=== PATIENT | male | born 1980 | race Caucasian/White ===

== ENCOUNTER 2016-11-17 15:58 | Observation (INO) ==
--- NOTE | 2016-11-17 16:09 | Emergency Department Note ---
Disposition Clinical Impression: Pneumonia Qualifiers: Pneumonia type: due to unspecified organism Laterality: bilateral Lung location : lower lobe of lung Qualified Code(s): J18.9 - Pneumonia, unspecified organism Disposition: Admitted As Inpatient Condition: Fair Referrals: Aleks White DO [Primary Care Provider] - Forms: ED Satisfaction Letter SOB HPI - General Chief Complaint: ED Back Pain/Injury Stated Complaint: Recheck Pneumonia Time Seen by Provider: 11/17/16 16:09 Source: patient, family Mode of arrival: private vehicle Limitations: no limitations Nursing Notes Reviewed: Yes Vital Signs Reviewed: Yes - History of Present Illness The patient relates that he has had some shortness of breath at home. He states he has pain is more severe into his back and when he goes to bend over and with a deep breath or cough. His cough is productive of just a whitish phlegm whereas it was green yesterday. He states he does have a home pulse oximeter and his saturations were dropping into the 85-88% range. He is not on home oxygen. He denies other nausea, vomiting, abdominal pain or diarrhea. Denies extremity complaints. He was extensively evaluated yesterday including a CT PE study which showed bibasilar patchy infiltrates. He has been taking some [place] for pain and Augmentin. With progressive pain and dyspnea he has returned today for reevaluation. Pt Subjective Complaint: shortness of breath, cough, pain with inspiration Onset (ago): day(s) Context: recent illness Severity: moderate Consistency/Duration: gradually worsening Improves with: rest Worsens with: exertion, coughing, inspiration Known history of: other (Recent) Associated symptoms: Reports: chest pain, pain with inspiration, fever, cough, sputum production, diaphoresis. Denies: wheezing, orthopnea, lower extremity pain, polyuria, polydipsia, parasthesias, palpitations, hemoptysis, nausea/ vomiting, syncope, abdominal pain, rash Cough present: Yes Cough Description: Voluntary, Productive, Hacking Cough Frequency: Intermittent Sputum production: Yes Sputum Amount: Small Sputum Color: White - Related Data Home Medications Medication Instructions Recorded Confirmed Amlodipine [Norvasc] 5 mg PO DAILY 11/16/16 11/16/16 Colchicine [Colcrys] mg PO DAILY 11/16/16 Febuxostat [Uloric] 40 mg PO DAILY 11/16/16 11/16/16 Fenofibrate [Tricor] 54 mg PO DAILY 11/16/16 11/16/16 Previous Rx's Medication Instructions Recorded Albuterol Sulfate [Albuterol 2 puff IH Q4HR PRN #1 hfa.aer.ad 11/16/16 Inhaler] Amoxicillin/Clavulanate [Augmentin] 875 mg PO BIDWM #20 tablet 11/16/16 GuaiFENesin ER [Mucinex] 1,200 mg PO BID #28 tbbp.12hr 11/16/16 HYDROcodone/Acet 5/325 mg [[place] 1 tab PO Q6H PRN #14 tab 11/16/16 5-325 mg] Allergies Allergy/AdvReac Type Severity Reaction Status Date / Time No Known Allergies Allergy Verified 11/16/16 10:18 All systems ED: reviewed and negative except as stated. Past Medical History - Past Medical History Attestation: Yes The following information was validated with the patient. Source: patient, old records reviewed, nursing notes reviewed Medical history: Reports: arthritis (Gout), hyperlipidemia Surgical history: Reports: orthopedic, other (Foot surgery) Psychiatric history: Reports: no psych history - Social History Smoking Status: Never smoker Smokeless Tobacco Status: No Alcohol use: Reports: none Drug use: Reports: none Physical Exam - General Limitations: no limitations General appearance: alert, in distress - Head Head exam: atraumatic, normocephalic, normal inspection - Eye Eye exam: Present: normal appearance, PERRL, EOMI - ENT ENT exam: normal exam, normal oropharynx, mucous membranes moist - Neck Neck exam: Present: normal inspection, full ROM, trachea midline - Chest Chest inspection: Present: normal inspection, symmetric chest wall rise - Respiratory Respiratory exam: Present: normal lung sounds bilaterally, respiratory distress , prolonged expiratory phase. Absent: wheezes, accessory muscle use - Cardiovascular Cardiovascular exam: Present: regular rate, normal rhythm, tachycardia, normal heart sounds - Abdominal Exam Abdominal exam: Present: soft, Non-Tender, normal bowel sounds. Absent: tenderness, distention, guarding, rebound, rigidity - Extremities Exam Extremities exam: Present: normal inspection, full ROM, normal capillary refill. Absent: tenderness, pedal edema, calf tenderness - Expanded Lower Extremity Exam Neurovascular/Tendon exam: Present: normal capillary refill. Absent: motor deficit, sensory deficit, tendon deficit Gait: observed and normal - Back Exam Back exam: Present: normal inspection, full ROM. Absent: tenderness, CVA tenderness (R), CVA tenderness (L) - Neurological Exam Neurological exam: Present: alert, oriented X3, normal gait - Psychiatric Psychiatric exam: Present: normal affect, normal mood - Skin Skin exam: Present: intact, normal color, diaphoresis. Absent: rash, cyanosis, erythema, pallor Course Course Narrative: 1619: Patient has failed outpatient treatment at this time. I am contacting to Dr. Sanders discuss this possible admission for IV fluids, IV antibiotic and continued oxygen and respiratory treatments. Dr. Fernandez agrees with the admission of this patient. He feels that we can hold on any repeat imaging until he can reevaluate the patient with consideration of repeat imaging tomorrow morning if there is no improvement showing. Vital Signs Temperature 98 F 11/17/16 16:02 Pulse Rate 121 11/17/16 16:02 Respiratory Rate 20 11/17/16 16:02 Blood Pressure 156/91 11/17/16 16:02 O2 Sat by Pulse Oximetry 11/17/16 16:02 Temperature 98 F 11/17/16 16:07 Pulse Rate 121 11/17/16 16:07 Respiratory Rate 20 11/17/16 16:07 Blood Pressure 156/91 11/17/16 16:07 O2 Sat by Pulse Oximetry 91 11/17/16 16:07 Oxygen Delivery Oxygen Delivery Room Air Shortness of Breath/Dyspnea - Differential Diagnosis Likely: pneumonia, asthma with exacerbation - Medical Records Medical records reviewed: Yes I reviewed the patient's medical records. CT/CT angio chest IMPRESSION: 1. No acute pulmonary emboli. 2. Mild patchy bilateral lower lobe bronchopneumonia, this could relate to a possible aspiration pneumonitis. D/ / 11/16/2016 10:52:48 Ron Aponte MD / rene - Lab Data Lab results reviewed: Yes I reviewed the patient's lab results. Result diagrams: 11/17/16 16:21 Lab Results 11/17/16 Range/Units 16:21 WBC 25.4 H (4.3-11.1) K/mcL RBC 4.81 (4.19-5.50) M/mcL Hgb 13.6 (12.9-16.9) g/dL Hct 39.1 (37.5-50.1) % MCV 81.3 L (83.0-100.0) fL MCH 28.3 (28.0-33.3) pg MCHC 34.8 (31.6-35.5) g/dL RDW 13.2 (11.5-14.5) % Plt Count 295 (140-400) K/mcL MPV 9.5 (9.4-12.4) fL Immature Gran % [facility] Seg Neutrophils % 46.0 % Band Neutrophils % 40.0 H (0-4) % Lymphocytes % 4.0 % Monocytes % 2.0 % Eosinophils % [facility] Basophils % [facility] Metamyelocytes % 4.0 H (0) % Myelocytes % 2.0 H (0) % Promyelocytes % 2.0 H (0) % Neutrophils # 21.8 H (1.6-8.9) K/mcL Lymphocytes # 1.0 (0.6-4.6) K/mcL Monocytes # 0.5 (0.0-1.3) K/mcL Eosinophils # [facility] Basophils # [facility] Toxic Granulation Present A (Not Present) Toxic Vacuolation Present A (Not Present) Platelet Estimate Normal (Normal)
[2016-11-17] MEDS ORDERED: 0.9 % Sodium Chloride 1,000 ML IVC ONE (16:12)
[2016-11-17] MEDS ORDERED: Ketorolac 30 MG/ML VIAL IVP ONE (16:13)
[2016-11-17] MEDS ORDERED: 0.9 % Sodium Chloride 1,000 ML IVC SCH (16:15)
[2016-11-17 16:30] LABS: Hematocrit 39.1 % (37.5-50.1); Hemoglobin 13.6 g/dL (12.9-16.9); Mean Corpuscular HGB Conc 34.8 g/dL (31.6-35.5); Mean Corpuscular Hemoglobin 28.3 pg (28.0-33.3); Mean Corpuscular Volume 81.3 fL (83.0-100.0); Mean Platelet Volume 9.5 fL (9.4-12.4); Platelet Count 295 K/mcL (140-400); Red Blood Count 4.81 M/mcL (4.19-5.50); Red Cell Distribution Width 13.2 % (11.5-14.5)
[2016-11-17] MEDS ORDERED: Levofloxacin 750 MG/150 ML 750 MG/150 ML BAG IVPB ONE (16:42)
[2016-11-17 17:00] LABS: Neutrophils # 21.8 K/mcL (1.6-8.9)
[2016-11-17 17:02] LABS: Monocytes # 0.5 K/mcL (0.0-1.3)
[2016-11-17 17:03] LABS: Platelet Estimate Normal (Normal); Toxic Granulation Present (Not Present); Toxic Vacuolation Present (Not Present)
[2016-11-17] MEDS ORDERED: Ketorolac 30 MG/ML VIAL IVP PRN (18:56)
[2016-11-17] MEDS ORDERED: *HR* HYDROcodone/Acet 5/325 mg TABLET PO PRN (18:56)
[2016-11-17] MEDS ORDERED: Acetaminophen 325 MG TABLET PO PRN (18:56)
[2016-11-17] MEDS ORDERED: Albuterol 2.5 MG/3 ML NEBULIZER IH PRN (18:56)
[2016-11-17] MEDS ORDERED: MOM Conc 10 ML UD.LIQ PO PRN (18:56)
[2016-11-17] MEDS ORDERED: Ondansetron 4 MG/2 ML VIAL IVP PRN (18:56)
[2016-11-17] MEDS ORDERED: Naloxone 0.4 MG/ML INJ IVP PRN (18:56)
[2016-11-17] MEDS: 0.9 % Sodium Chloride 1,000 ML IVC SCH (20:21)
[2016-11-17] MEDS: PredniSONE 20 MG TABLET PO SCH (20:26)
[2016-11-17] MEDS: Ipratropium/Albuterol Neb 3 ML IH SCH (23:31)
[2016-11-18] MEDS: Ipratropium/Albuterol Neb 3 ML IH SCH ×2 (03:57→10:13)
[2016-11-18] MEDS: 0.9 % Sodium Chloride 1,000 ML IVC SCH ×2 (04:24→12:49)
[2016-11-18] MEDS: PredniSONE 20 MG TABLET PO SCH (08:09)
[2016-11-18] MEDS ORDERED: Levofloxacin 750 MG/150 ML 750 MG/150 ML BAG IVPB SCH ×3 (09:00→17:00)
--- NOTE | 2016-11-18 11:39 | Internal Med History&Physical ---
Date of Encounter: 11/18/16 Time of Encounter: 11:05 Assessment and Plan (1) Pneumonia Current visit: Yes Status: Acute He has been started on IV Levaquin through emergency room. Lactobacillus will also be given. Follow-up labs will be done in a.m. with room air oximetry on 6 minute walk. Qualifiers: Pneumonia type: due to unspecified organism Laterality: bilateral Lung location: lower lobe of lung Qualified Code(s): J18.9 - Pneumonia, unspecified organism (2) Hypertension Current visit: Yes Status: Chronic Continue Norvasc. Will add low-dose metoprolol for tachycardia Qualifiers: Hypertension type: essential hypertension Qualified Code(s): I10 - Essential (primary) hypertension (3) Hematuria Current visit: Yes Status: Acute UA of 11/16/2016 reviewed showing large amount of blood but 0-3 WBCs on microscopic exam. Internal Medicine - H&P: HPI Chief complaint: Cough and dyspnea Admitted From: Home Plans for Post Hospital Care: Home History of present illness: Mr. Canseco is a 36 year old male who came to emergency room from a local urgent care November 16 after developing cough with dyspnea and right lower quadrant pain. Chest CT in emergency room showed bibasilar pneumonia. No evidence for possible kidney stone was found. He was given amoxicillin and other medications for the pneumonia and discharged home. He had persistent cough and some recurrent right lower abdominal pain so returned to emergency room November 17. WBC was found elevated at 25.4K with 40% bands present on differential. He was admitted to [facility] floor for ongoing care needs. He states he feels improved at the present time but not back to baseline. He is a lifelong nonsmoker and has no known chronic lung disease. He has not had previous pneumonia. He denies any unusual travel or contact exposures. Past Med Surg Social Fam HX - Past Medical History Medical history: arthritis, hyperlipidemia Psychiatric history: no psych history - Past Surgical History Surgical History: orthopedic, other - Social History Smoking Status: Never smoker Smokeless Tobacco Status: No Alcohol use: none Drug use: none Internal Medicine - H&P: Meds Albuterol Sulfate [Albuterol Inhaler] 2 puff IH Q4HR PRN #1 hfa.aer.ad 11/16/16 [Rx] Amlodipine [Norvasc] 10 mg PO DAILY 11/16/16 [History] Amoxicillin/Clavulanate [Augmentin] 875 mg PO BIDWM #20 tablet 11/16/16 [Rx] Colchicine [Colcrys] 0.6 mg PO DAILY 11/16/16 [History] Febuxostat [Uloric] 80 mg PO DAILY 11/16/16 [History] Fenofibrate [Tricor] 160 mg PO DAILY 11/16/16 [History] GuaiFENesin ER [Mucinex] 1,200 mg PO BID #28 tbbp.12hr 11/16/16 [Rx] HYDROcodone/Acet 5/325 mg [[place] 5-325 mg] 1 tab PO Q6H PRN #14 tab 11/16/16 [Rx ] Gemfibrozil [Lopid] 600 mg PO BIDWM 11/17/16 [History] Losartan Potassium [Cozaar] 75 mg PO DAILY 11/17/16 [History] Allergies No Known Allergies Allergy (Verified 11/16/16 10:18) All Systems PM: A 10-system review of systems was performed and is negative for pertinent findings except as documented above in the HPI. Review of systems: Gen.: He states his weight is increased approximately 40 pounds in the past year , unintentionally. He admits he has not been exercising as much as before. Cardiovascular: He has history of hypertension but denies IN heart failure angina DVT or pulmonary embolus Respiratory: As per history of present illness GI: He denies disorders of his liver gallbladder or exocrine pancreas : He denies hematuria dysuria or kidney stones Neurologic: Denies large distribution strokes or seizures. He denies syncope or migraine headaches Endocrine: He has hyperlipidemia but denies diabetes or thyroid disease Hematology/oncology: He denies blood disorders cancers or anemia Psychiatric: He denies anxiety depression or other mental health issues Musculoskeletal: He has diagnosis of gout. He had clubfoot with surgical correction. He denies other bone joint or muscle disorders. He has had tendon surgery on his left hand. - Constitutional Vitals: Temp Pulse Resp BP Pulse Ox 97.7 F 110 14 145/75 95 11/18/16 10:22 11/18/16 10:22 11/18/16 10:22 11/18/16 10:22 11/18/16 10:22 Exam: Gen.: He is a well-developed well-nourished male who appears minimally dyspneic lying in bed. He is wearing oxygen by nasal cannula. HEENT: Head is atraumatic and normocephalic. Eyes: EOMI. There is no scleral icterus. Mouth: Mucosa is moist. Neck: Supple and nontender. There is no thyromegaly or adenopathy noted. Heart: Regular without murmurs gallops or ectopics. Rate is 120/m Lungs: No wheezes egophony or crackles are heard. Abdomen: Soft and nontender. No masses or guarding are noted. Extremities: There is no cyanosis edema or clubbing noted. Dorsalis pedis and posterior tibial pulses are 1-2 over 2 bilaterally. Neurologic: Mental status: He is talkative and a good historian. Cranial nerves : Smile is symmetric. Forehead wrinkles bilaterally. Tongue protrudes midline. EOMI. Motor: There is no pronator drift. Cerebellar: Finger to nose is intact bilaterally. Skin: Warm and dry Internal Med - H&P Results - Labs CBC & Chem 7: 11/17/16 16:21 - VTE Documentation of Mechanical Device: Graduated compression elastic hosiery
[2016-11-18] MEDS: 0.45 % Sodium Chloride w/KCl 20 MEQ/1,000 ML MLS IVC SCH ×2 (12:41→21:07)
[2016-11-18] MEDS: Metoprolol XL (24 HR) Succ 25 MG TAB.ER.24H PO SCH (12:45)
[2016-11-18] MEDS: Colchicine 0.6 MG TABLET PO SCH (16:33)
[2016-11-19 04:49] LABS: Hematocrit 32.8 % (37.5-50.1); Hemoglobin 11.1 g/dL (12.9-16.9); Mean Corpuscular HGB Conc 33.8 g/dL (31.6-35.5); Mean Corpuscular Volume 82.8 fL (83.0-100.0); Mean Platelet Volume 10.2 fL (9.4-12.4); Platelet Count 366 K/mcL (140-400); Red Blood Count 3.96 M/mcL (4.19-5.50); Red Cell Distribution Width 13.7 % (11.5-14.5)
[2016-11-19 05:08] LABS: BUN/Creatinine Ratio 20 (6-26); Blood Urea Nitrogen 17 mg/dL (8-26); Calcium 9.5 mg/dL (8.6-10.8); Carbon Dioxide 23 mEq/L (19-29); Chloride 108 mEq/L (98-109); Glucose 114 mg/dL (70-99); Osmolality,Calculated 294 (280-300); Potassium 4.6 mEq/L (3.5-4.5); Sodium 141 mEq/L (136-145); eGFR For African Americans > 60 (> 60); eGFR For Non-African Americans > 60 (> 60)
[2016-11-19 07:34] LABS: Lymphocytes # 1.9 K/mcL (0.6-4.6); Monocytes # 0.6 K/mcL (0.0-1.3); Neutrophils # 29.6 K/mcL (1.6-8.9)
[2016-11-19 07:35] LABS: Toxic Granulation Present (Not Present)
[2016-11-19 07:53] VITALS: BP 156/92
[2016-11-19] MEDS: Metoprolol XL (24 HR) Succ 25 MG TAB.ER.24H PO SCH (08:34)
[2016-11-19] MEDS: 0.45 % Sodium Chloride w/KCl 20 MEQ/1,000 ML MLS IVC SCH (08:35)
[2016-11-19] MEDS: Colchicine 0.6 MG TABLET PO SCH (08:45)
[2016-11-19] MEDS ORDERED: FEBUXOSTAT 80 MG PO SCH (09:00)
--- NOTE | 2016-11-19 09:41 | Discharge Summary ---
Date of Encounter: 11/19/16 Time of Encounter: 09:25 - Discharge Diagnosis (1) Pneumonia Priority: Primary Status: Acute Qualifiers: Pneumonia type: due to unspecified organism Laterality: bilateral Lung location: lower lobe of lung Qualified Code(s): J18.9 - Pneumonia, unspecified organism (2) Hypertension Priority: Secondary Status: Chronic Qualifiers: Hypertension type: essential hypertension Qualified Code(s): I10 - Essential (primary) hypertension (3) Hematuria Priority: Secondary Status: Acute - Discharge Medications Prescriptions: Lactobacillus [Culturelle] 1 each PO BID #14 cap.sprink Levofloxacin [Levaquin] 500 mg PO DAILY #7 tablet Metoprolol XL (24 HR) Succ [Toprol Xl] 25 mg PO DAILY #30 tab.er.24h Home Medications: Albuterol Sulfate [Albuterol Inhaler] 2 puff IH Q4HR PRN #1 hfa.aer.ad 11/16/16 [Rx] Amlodipine [Norvasc] 10 mg PO DAILY 11/16/16 [History] Amoxicillin/Clavulanate [Augmentin] 875 mg PO BIDWM #20 tablet 11/16/16 [Rx] Colchicine [Colcrys] 0.6 mg PO DAILY 11/16/16 [History] Febuxostat [Uloric] 80 mg PO DAILY 11/16/16 [History] Fenofibrate [Tricor] 160 mg PO DAILY 11/16/16 [History] GuaiFENesin ER [Mucinex] 1,200 mg PO BID #28 tbbp.12hr 11/16/16 [Rx] HYDROcodone/Acet 5/325 mg [[place] 5-325 mg] 1 tab PO Q6H PRN #14 tab 11/16/16 [Rx ] Gemfibrozil [Lopid] 600 mg PO BIDWM 11/17/16 [History] Losartan Potassium [Cozaar] 75 mg PO DAILY 11/17/16 [History] Lactobacillus [Culturelle] 1 each PO BID #14 cap.sprink 11/19/16 [Rx] Levofloxacin [Levaquin] 500 mg PO DAILY #7 tablet 11/19/16 [Rx] Metoprolol XL (24 HR) Succ [Toprol Xl] 25 mg PO DAILY #30 tab.er.24h 11/19/16 [ Rx] Allergies/Adverse Reactions: Allergies No Known Allergies Allergy (Verified 11/16/16 10:18) Date of admission: 11/17/16 18:16 Primary care physician: Aleks White DO - Patient Status Disposition: Home, Self-Care Condition: Fair Overall status at discharge: patient is progressing back to baseline - Discharge Instructions Follow Up With: Aleks White DO [Primary Care Provider] - 1 week - Diet and Activity Activity: resume usual activities as tolerated Diet: advance to your usual diet Hospital course: Mr. Canseco is a 36 year old male male who came to emergency room from a local urgent care November 16 after developing cough with dyspnea and right lower quadrant pain. Chest CT in emergency room showed bibasilar pneumonia. No evidence for possible kidney stone was found. He was given amoxicillin and other medications for the pneumonia and discharged home. He had persistent cough and some recurrent right lower abdominal pain so returned to emergency room November 17. WBC was found elevated at 25.4K with 40% bands present on differential. He was admitted to [facility] floor for ongoing care needs. Initial orders were written by the emergency room physician. I saw him on November 18 and performed a history and physical. He was started on IV Levaquin through emergency room. He remained afebrile during hospital stay. Follow-up lab work on November 19 showed WBC higher at 32.2K with 72 segs and 20 bands. He felt clinically improved however and wished to be discharged home. He will continue the Augmentin prescribed previously prior to hospitalization and also take Levaquin 500 milligrams daily for [address] White can follow-up on his progress. Room air oximetry will be checked prior to discharge. Hemoglobin decreased to 11.[address] White can monitor this. Azotemia improved with a creatinine decreasing to 0.85 on the day of discharge. He will follow Dr. White within 1 week. He will remain off work until November 24. - Time Spent with Patient Total time spent providing and/or coordinating discharge services: - Constitutional Vitals: Temp Pulse Resp BP Pulse Ox 98.6 F 99 14 156/92 93 11/19/16 07:50 11/19/16 07:50 11/19/16 07:50 11/19/16 07:50 11/19/16 07:50 - VTE Documentation of Mechanical Device: Graduated compression elastic hosiery
== END 2016-11-19 10:58 | disposition home or self-care (01) ==
LOC: INPPIK 15:58 → EMEROOPIK 15:58 → INPPIK 18:24
PROVIDERS: ADMIT Internal Medicine; ATTEND Internal Medicine